=== PATIENT | female | born 1940 | race Caucasian/White ===

== ENCOUNTER → 2017-10-11 | Outpatient (CLI) | payer OTHER ==
[~2017-10-11] MED LIST: AMBIEN 5 MG TABL5 M1; CLONAZEPAM
== END ==
LOC: M.RAD 09:30
DX: R92.8 Other abnormal and inconclusive findings on diagnostic imaging of breast (principal)

== ENCOUNTER → 2018-04-06 | Outpatient (CLI) | payer OTHER | LOC: M.RAD 10:11 | DX: Z12.31 Encounter for screening mammogram for malignant neoplasm of breast (principal) ==

== ENCOUNTER → 2018-10-26 | Outpatient (CLI) | payer OTHER | LOC: M.RAD 11:30 | DX: J15.8 Pneumonia due to other specified bacteria (principal); R06.02 Shortness of breath ==

== ENCOUNTER → 2019-07-08 | Outpatient (CLI) | payer OTHER | LOC: M.RAD 11:27 | DX: Z12.31 Encounter for screening mammogram for malignant neoplasm of breast (principal) ==